=== PATIENT | male | born 1960 | race Two or more races ===

== ENCOUNTER 2016-12-23 14:52 | Emergency (ER) | payer SELFPAY ==
[2016-12-23 15:06] VITALS: BP 151/79
[2016-12-23] MEDS ORDERED: OXYCODONE-ACETAMINOPHEN 5-325 MG TABLET PO ONE ×2 (15:35→17:58)
--- NOTE | 2016-12-23 15:37 | ER Document Report ---
ED Medical Screen (RME) - General Chief Complaint: Toothache Stated Complaint: ABSCESS Time Seen by Provider: 12/23/16 15:30 Notes: This 55-year-old male patient comes emergency room with painful swelling to his left jaw. He has several bad teeth. He does have lupus and is on an unknown medication for this, so do not know if he is immunosuppressed. Exam shows the left upper second premolar first and second molars are all decayed and wobbling quite loosely. There is no obvious drainable collection. The left lower third molar is very decayed but not tender to percuss. The face on the left is erythematous and grossly swollen. I have greeted and performed a rapid initial assessment of this patient. A comprehensive ED assessment and evaluation of the patient, analysis of test results and completion of the medical decision making process will be conducted by additional ED providers. TRAVEL OUTSIDE OF THE [place] IN LAST 30 DAYS: No - Related Data Allergies/Adverse Reactions: No Known Allergies Allergy (Verified 12/23/16 15:04) Past Medical History - Social History Chew tobacco use (# tins/day): No Frequency of alcohol use: None Drug Abuse: None - Past Medical History Cardiac Medical History: Reports: Hx Hypercholesterolemia Renal/ Medical History: Denies: Hx Peritoneal Dialysis Surgical Hx: Negative - Immunizations Hx Diphtheria, Pertussis, Tetanus Vaccination: Yes Physical Exam - Vital signs Vitals: Temp Pulse Resp BP Pulse Ox 98.6 F 86 16 151/79 H 97 12/23/16 15:04 12/23/16 15:04 12/23/16 15:04 12/23/16 15:04 12/23/16 15:04 Course - Vital Signs Vital signs: Temp Pulse Resp BP Pulse Ox 98.6 F 86 16 151/79 H 97 12/23/16 15:04 12/23/16 15:04 12/23/16 15:04 12/23/16 15:04 12/23/16 15:04
[2016-12-23 16:02] LABS: ABSOLUTE LYMPHOCYTES (AUTO) 1.5 10^3/uL (0.5-4.7); ABSOLUTE MONOCYTES (AUTO) 0.5 10^3/uL (0.1-1.4); ABSOLUTE NEUT (AUTO) 5.1 10^3/uL (1.7-8.2); BASOPHILS % (AUTO) 0.3 % (0-2); EOSINOPHILS % (AUTO) 0.6 % (0-6); HEMATOCRIT 42.7 % (37.9-51.0); HEMOGLOBIN 14.9 g/dL (13.5-17.0); LYMPHOCYTES % (AUTO) 21.3 % (13-45); MEAN CORPUSCULAR HEMOGLOBIN 29.2 pg (27.0-33.4); MEAN CORPUSCULAR VOLUME 84 fl (80-97); MONOCYTES % (AUTO) 7.5 % (3-13); RED BLOOD COUNT 5.11 10^6/uL (4.35-5.55); RED CELL DISTRIBUTION WIDTH 13.5 % (11.5-14.0); SEGMENTED NEUTROPHILS % (AUTO) 70.3 % (42-78); WHITE BLOOD COUNT 7.2 10^3/uL (4.0-10.5)
[2016-12-23 16:19] LABS: ALANINE AMINOTRANSFERASE 45 U/L (21-72); ALBUMIN 4.3 g/dL (3.5-5.0); ALKALINE PHOSPHATASE 140 U/L (38-126); ANION GAP 12 (5-19); ASPARTATE AMINO TRANSFERASE 23 U/L (17-59); BILIRUBIN,DIRECT 0.3 mg/dL (0.0-0.4); BILIRUBIN,TOTAL 1.1 mg/dL (0.2-1.3); BLOOD UREA NITROGEN 12 mg/dL (7-20); CALCIUM 9.6 mg/dL (8.4-10.2); CARBON DIOXIDE 26 mmol/L (22-30); CHLORIDE 99 mmol/L (98-107); CREATININE RESULT 0.57 mg/dL (0.52-1.25); GLUCOSE 336 mg/dL (75-110); TOTAL PROTEIN 7.9 g/dL (6.3-8.2)
[2016-12-23] MEDS ORDERED: BUPIVACAINE HCL 0.5 % INJ/PF 30 ML SDV INJ ONE (16:31)
[2016-12-23] MEDS ORDERED: LIDOCAINE 1% INJ-PF (10 MG/ML) 30 ML SDV INJ ONE (16:31)
[2016-12-23] MEDS ORDERED: CLINDAMYCIN 600 MG/D5W RTU 600 MG/50 ML RTUPB IV ONE (16:33)
--- NOTE | 2016-12-23 16:43 | ER Document Report ---
ED Oral Problem - General Mode of Arrival: Ambulatory Information source: Patient, Relative - TRAVEL OUTSIDE OF THE [place] IN LAST 30 DAYS: No - HPI Patient complains to provider of: Swelling of face, Toothache Onset: Yesterday Associated symptoms: Other - see above <JASPER WING - Last Filed: 12/23/16 19:36> <SIMONE PAIZ - Last Filed: 12/23/16 19:39> - General Chief Complaint: Toothache Stated Complaint: ABSCESS Time Seen by Provider: 12/23/16 15:30 Notes: Patient is a 55 year old male who presents to the ED with complaints of left facial and mouth swelling and pain with onset last night. Patient has had problems with his teeth for a long time. Patients tried getting him into a dentist but there are no open dentists today that could get him in. Patients states that he may have had a slight fever last night but none since. Patient is able to swallow and open/close his mouth without difficulty. The swelling to his face has gotten significantly worse since this morning. Patient denies any drainage or bad taste in his mouth. He does have some loose molars. Patient is diabetic and does not regularly track his sugars. Patients adds that patient has also been having a headache and last night prior to bed he had a small bump on the top of his head. (JASPER WING) - Related Data Allergies/Adverse Reactions: No Known Allergies Allergy (Verified 12/23/16 15:04) Past Medical History - General Information source: Patient - Social History Smoking Status: Unknown if Ever Smoked Chew tobacco use (# tins/day): No Frequency of alcohol use: None Drug Abuse: None Family History: Reviewed & Not Pertinent Patient has suicidal ideation: No Patient has homicidal ideation: No - Past Medical History Cardiac Medical History: Reports: Hx Hypercholesterolemia Endocrine Medical History: Reports: Hx Diabetes Mellitus Type 2 Renal/ Medical History: Denies: Hx Peritoneal Dialysis Surgical Hx: Negative - Immunizations Hx Diphtheria, Pertussis, Tetanus Vaccination: Yes <JASPER WING - Last Filed: 12/23/16 19:36> Review of Systems - Review of Systems Constitutional: See HPI, Fever EENT: See HPI, Mouth pain, Mouth swelling, Dental problem, Other - facial swelling Cardiovascular: No symptoms reported Respiratory: No symptoms reported Gastrointestinal: No symptoms reported Genitourinary: No symptoms reported Male Genitourinary: No symptoms reported Musculoskeletal: No symptoms reported Skin: No symptoms reported Hematologic/Lymphatic: No symptoms reported Neurological/Psychological: No symptoms reported <JASPER WING - Last Filed: 12/23/16 19:36> Physical Exam <JASPER WING - Last Filed: 12/23/16 19:36> <SIMONE PAIZ - Last Filed: 12/23/16 19:39> - Vital signs Vitals: Temp Pulse Resp BP Pulse Ox 98.6 F 86 16 151/79 H 97 12/23/16 15:04 12/23/16 15:04 12/23/16 15:04 12/23/16 15:04 12/23/16 15:04 - Notes Notes: GENERAL: Alert, interacts well. No acute distress. HEAD: Normocephalic. Slightly swollen, non erythematous area, firm, no fluctuance just left of midline on parietal scalp. Left side of face is grossly swollen and erythematous, it does not extend past jaw line or eye, very tender to palpation. DENTAL: Tooth 16 appears to be missing, 14 and 15 are quite loose, approximately 1 cm tender and fluctuant area lateral to 12 and 13 that is not erythematous. EYES: Pupils equal, round, and reactive to light. Extraocular movements intact. ENT: Oral mucosa moist, tongue midline. NECK: Full range of motion. Supple. Trachea midline. LUNGS: No respiratory distress. EXTREMITIES: Moves all 4 extremities spontaneously. No edema. No cyanosis. NEUROLOGICAL: Alert and oriented x3. Normal speech. PSYCH: Normal affect, normal mood. (JASPER WING) Course - Laboratory Result Diagrams: 12/23/16 15:50 12/23/16 15:50 <JASPER WING - Last Filed: 12/23/16 19:36> - Laboratory Result Diagrams: 12/23/16 15:50 12/23/16 15:50 <SIMONE PAIZ - Last Filed: 12/23/16 19:39> - Re-evaluation Re-evalutation: 12/23/16 19:08 CBC unremarkable, CMP has hyperglycemia with a glucose of 336, patient is a known diabetic, no evidence of ketoacidosis or hyperosmolar state, patient's dental abscess was identified, numbed, incised and drained and also treated with clindamycin. Will be discharged home on clindamycin and saline rinses. Has a follow-up appointment Monday afternoon with a dentist. (SIMONE PAIZ) - Vital Signs Vital signs: Temp Pulse Resp BP Pulse Ox 98.6 F 86 16 151/79 H 97 12/23/16 15:04 12/23/16 15:04 12/23/16 15:04 12/23/16 15:04 12/23/16 15:04 - Laboratory Laboratory results interpreted by me: 12/23/16 15:50 Glucose 336 H Alkaline Phosphatase 140 H Procedures <JASPER WING - Last Filed: 12/23/16 19:36> - Incision and Drainage Left upper jaw Type: Complex Anesthetic type: 1% Lidocaine, 0.5% Bupivacaine, Other - Combination of lidocaine and bupivacaine doing both an inferior alveolar block and an infraorbital block, patient tolerated well. mL's of anesthetic: 5 Blade size: 11 Incision Method: Incision made by scalpel <SIMONE PAIZ - Last Filed: 12/23/16 19:39> - Incision and Drainage Left upper jaw Notes: 12/23/16 19:15 Loculations broken up using blunt dissection. (SIMONE PAIZ) Discharge <JASPER WING - Last Filed: 12/23/16 19:36> <SIMONE PAIZ - Last Filed: 12/23/16 19:39> - Discharge Clinical Impression: Dental abscess, Tobacco abuse, Tobacco abuse counseling Hypertension Qualifiers: Hypertension type: essential hypertension Qualified Code(s): I10 - Essential ( primary) hypertension Diabetes mellitus with hyperglycemia Qualifiers: Diabetes mellitus type: type 2 Diabetes mellitus penitentiary insulin use: without equipment operator intermodal yard use Qualified Code(s): E11.65 - Type 2 diabetes mellitus with hyperglycemia Condition: Stable Disposition: HOME, SELF-CARE Additional Instructions: Today I drained your dental abscess. I was unable to pull out your loose tooth. Your dental abscess should improve significantly now that has been drained and you have been started on clindamycin. You still need to follow-up with your dentist on Monday. You will likely need to have at least one of your teeth pulled. Please return here if the swelling increases, if you develop a fever or if you develop any new or concerning symptoms. Please mix of a combination of salt and water and rinse your mouth with warm salt water rinses 4 times a day. Use hot packs on your face for 15 minutes an hour 3-4 times a day to encourage drainage, you may also use ice packs on your face for 15 minutes every hour as needed to decrease pain. Take the clindamycin 4 times a day as directed until it is gone. Please use ibuprofen (Motrin or Advil) 600-800 mg every 8 hours as needed for pain or fever. You may also use acetaminophen (Tylenol) 1000 mg every 4-6 hours as needed for pain or fever. Please be aware that many medications contain acetaminophen, do not exceed a total of 1000 mg of acetaminophen every 6 hours. Prescriptions: Clindamycin HCl 300 mg PO Q6H #28 capsule Forms: Smoking Cessation Education Scribe Attestation: 12/23/16 19:39 I personally performed the services described in the documentation, reviewed and edited the documentation which was dictated to the scribe in my presence, and it accurately records my words and actions. (SIMONE PAIZ) Scribe Documentation - Scribe Written by Noman:: noman Esquivel, 12/23/2016, [id number] acting as scribe for :: Laurel <JASPER WING - Last Filed: 12/23/16 19:36>
== END 2016-12-23 19:31 | disposition home or self-care (01) ==
LOC: ER 14:52
PROC: 0W930ZZ Drainage of Oral Cavity and Throat, Open Approach (ICD-10-PCS; principal; 2016-12-23)
DX: K04.7 Periapical abscess without sinus (principal); E11.65 Type 2 diabetes mellitus with hyperglycemia; K08.89 Other specified disorders of teeth and supporting structures; R22.0 Localized swelling, mass and lump, head; I10 Essential (primary) hypertension; F17.200 Nicotine dependence, unspecified, uncomplicated
CPT/HCPCS: 99283; 36415; 87040; 85025; 80053; 40800; J3490